=== PATIENT | female | born 1970 | race Caucasian/White ===

== ENCOUNTER 2018-12-12 12:54 | Emergency (ER) | payer SELFPAY ==
[~2018-12-12] VITALS: Ht 154.9 cm; Wt 106.7 kg
[2018-12-12 12:57] VITALS: Ht 154.9 cm; Wt 106.7 kg
--- NOTE | 2018-12-12 13:13 | ERD ---
ER Documentation Chief Complaint Chief Complaint abdominal pain x 4 days HPI The patient is a 48-year-old female, presenting to the ER because of epigastric abdominal pain intermittently for the last 4days, had similar symptoms previ ously, worse with eating, denies fever, chills, neck pain, chest pain, dyspnea, vomiting, dysuria, diarrhea. She does smoke, drinks socially Past medical history: Gastritis, GERD Past surgical history: Cholecystectomy, tubal ligation ROS All systems reviewed and are negative except as per history of present illness. Medications Home Meds Active Scripts Pantoprazole* (Protonix*) 40 Mg Tablet., 40 MG PO DAILY, #20 TAB Prov:CHRISTINA MELENDREZ MD 12/12/18 Allergies Allergies: Coded Allergies: No Known Allergy (Unverified , 12/12/18) Physical Exam Vitals Vital Signs Date Temp Pulse Resp B/P (MAP) Pulse Ox O2 O2 Flow FiO2 Time Delivery Rate 12/12/18 98.0 79 18 122/88 98 Room Air 14:41 (99) 12/12/18 90 17 133/77 98 Room Air 13:46 (95) 12/12/18 97.6 112 18 144/89 97 12:57 (107) Physical Exam Const: No acute distress. Head: Atraumatic. Eyes: Normal Conjunctiva. ENT: Normal External Ears, Nose and Mouth. Neck: Full range of motion. No meningismus. Resp: Clear to auscultation bilaterally. Cardio: Regular rate and rhythm. Abd: Soft, non distended, normal bowel sounds, non tender. Skin: No petechiae or rashes. Back: No midline or flank tenderness. Ext: No cyanosis, or edema. Neur: Awake and alert. No focal deficit Psych: Normal Mood and Affect. Result Diagram: 12/12/18 1324 12/12/18 1324 Results 24 hrs Laboratory Tests Test 12/12/18 13:24 12/12/18 13:47 12/12/18 13:48 White Blood Count 10.9 10^3/ul Red Blood Count 4.88 10^6/ul Hemoglobin 14.3 g/dl Hematocrit 43.6 % Mean Corpuscular Volume 89.3 fl Mean Corpuscular Hemoglobin 29.3 pg Mean Corpuscular 32.8 g/dl Hemoglobin Concent Red Cell Distribution Width 12.6 % Platelet Count 282 10^3/UL Mean Platelet Volume 12.4 fl Immature Granulocytes % 0.400 % Neutrophils % 66.6 % Lymphocytes % 25.0 % Monocytes % 5.6 % Eosinophils % 1.9 % Basophils % 0.5 % Nucleated Red Blood Cells % 0.0 /100WBC Immature Granulocytes # 0.040 10^3/ul Neutrophils # 7.3 10^3/ul Lymphocytes # 2.7 10^3/ul Monocytes # 0.6 10^3/ul Eosinophils # 0.2 10^3/ul Basophils # 0.1 10^3/ul Nucleated Red Blood Cells # 0.0 10^3/ul Sodium Level 143 mmol/L Potassium Level 3.6 mmol/L Chloride Level 104 mmol/L Carbon Dioxide Level 29 mmol/L Anion Gap 10 Blood Urea Nitrogen 12 mg/dl Creatinine 0.65 mg/dl Est Glomerular Filtrat Rate mL/min > 60 mL/min Glucose Level 118 mg/dl Calcium Level 9.1 mg/dl Total Bilirubin 0.8 mg/dl Direct Bilirubin 0.00 mg/dl Indirect Bilirubin 0.8 mg/dl Aspartate Amino Transf (AST/SGOT) 32 IU/L Alanine 47 IU/L Aminotransferase (ALT/SGPT) Alkaline Phosphatase 118 IU/L Total Protein 8.6 g/dl Albumin 4.3 g/dl Globulin 4.30 g/dl Albumin/Globulin Ratio 1.00 Lipase 26 U/L POC Beta HCG, Qualitative NEGATIVE Bedside Urine pH (LAB) 7.0 Bedside Urine Protein (LAB) Negative Bedside Urine Glucose (UA) Negative Bedside Urine Ketones (LAB) Negative Bedside Urine Blood Trace-lysed Bedside Urine Nitrite (LAB) Negative Bedside Urine Leukocyte Esterase Negative (L Current Medications Medications Dose Sig/Sarbjit Start Time Status Last (Trade) Ordered Route PRN Stop Time Admin Dose Reason Admin Famotidine 20 mg ONCE ONCE 12/12/18 DC 12/12/18 (Pepcid Iv) IV 13:30 13:45 12/12/18 13:32 40 ml ONCE ONCE 12/12/18 DC 12/12/18 Miscellaneous PO 13:30 13:45 Medication 12/12/18 13:32 (Gi Cocktail (2)) Procedures/MDM MEDICAL MAKING DECISION: The patient is a 48-year-old female, presenting with epigastric abdominal pain, unclear etiology, treated with Pepcid IV and GI cocktail with good response, is stable for outpatient follow-up The differential diagnoses considered include but are not limited to c holelithiasis, cholecystitis, choledocholithiasis, cholangitis, pancreatitis, hepatitis, gastritis, peptic ulcer disease, gastric ulcer, appendicitis, cystitis, diverticulitis, partial small bowel obstruction. Departure Diagnosis: Primary Impression: Abdominal pain Condition: Good Comments She was treated with Protonix The patient's blood pressure was elevated (>120/80) but appears stable without evidence of hypertension emergency or urgency. The patient was counseled about the risks of hypertension and urged to pursue outpatient monitoring and therapy within a week with their primary care physician. I discussed the findings with the patient. I advised the patient to follow-up with the primary physician in about 1-2 days, sooner if needed and return if any concern for reevaluation and referral to gastroenterology, possible endoscopy. Disclaimer: Inadvertent spelling and grammatical errors are likely due to EHR/dictation software use and do not reflect on the overall quality of patient care. Also, please note that the electronic time recorded on this note does not necessarily reflect the actual time of the patient encounter. CHRISTINA MELENDREZ MD Dec 12, 2018 13:13
[2018-12-12] MEDS ORDERED: FAMOTIDINE 20 MG INJ IV ONE (13:30)
[2018-12-12] MEDS ORDERED: LIDOCAINE/MYLANTA 40 ML BTL PO ONE (13:30)
[2018-12-12] MEDS ORDERED: PANT40TA3 PO (14:23)
[2018-12-12 14:41] VITALS: BP 122/88; PULSE 79; RESP 18
== END 2018-12-12 14:55 | disposition home or self-care (01) ==
LOC: E/R 12:54
DX: R10.13 Epigastric pain (principal)
CPT/HCPCS: 36415; 80053; 81003; 81025; 83690; 85025; 96374